=== PATIENT | female | born 1965 | race Caucasian/White ===

== ENCOUNTER 2019-12-22 11:25 | Outpatient (CLI) | payer BC, SELFPAY ==
--- NOTE | ~2019-12-22 | MMUS_ITS ---
EXAMINATION: MM diagnostic [facility] BI w jannie, US breast RT limited HISTORY: Bilateral breast asymmetries on screening mammogram TECHNIQUE: Additional 3-D tomosynthesis images of the breasts were performed and synthetic 2-D images were generated. CAD analysis was submitted and interpreted. High resolution limited right breast ult rasound was performed. COMPARISON: 11/20/2019, 11/21/2018, 11/15/2017, 10/16/2017 FINDINGS: MAMMOGRAPHIC FINDINGS: Right breast: There appears to be a 6 mm low density, round, obscured mass in the middle third of the breast at the 10:00 location 7 cm from the nipple. Left breast: Left breast asymmetries on screening mammogram do not persist with spot compression. ULTRASOUND: There is a 5 mm cyst at the 10:00 location 4 cm from the nipple corresponding to the mammographic fin ding in question. IMPRESSION: 1. No mammographic or sonographic evidence of malignancy. 2. Recommend routine screening mammography in one year. BI-RADS Category 2: Benign finding(s). Reviewed, dictated and finalized at location A. D NUTRITION DIRECTOR IMPRESSION: 1. No mammographic or sonographic evidence of malignancy. 2. Recommend routine screening mammography in one year. BI-RADS Category 2: Benign finding(s).
== END 2019-12-22 11:26 | disposition home or self-care (01) ==
LOC: ANHIMG 11:29
PROVIDERS: PCP Family Medicine; Visit Provider Obstetrics & Gynecology
DX: R92.8 Other abnormal and inconclusive findings on diagnostic imaging of breast (principal)
CPT/HCPCS: 76642; 77062; 77066; G0279

== ENCOUNTER 2020-11-28 07:15 | Outpatient (CLI) | payer BC, SELFPAY ==
--- NOTE | ~2020-11-28 | MM_ITS ---
EXAMINATION: MM screening [facility] BI w jannie HISTORY: Screening TECHNIQUE: Craniocaudal and mediolateral oblique 3-D tomosynthesis images were obtained and synthetic 2-D images were generated. CAD analysis was submitted and interpreted. COMPARISON: Comparison to multiple prior studies sequentially, with oldest reviewed study dated 09/02. BREAST PARENCHYMAL COMPOSITION: There are scattered areas of fibroglandular density. FINDINGS: There are benign bilateral breast calcifications. There is no evidence of suspicious mass, calcification, or architectural distortion to suggest malignancy in either breast. There has been no suspicious interval change. IMPRESSION: 1. No mammographic evidence of malignancy. 2. Recommend routine screening mammography in one year. BI-RADS Category 2: Benign finding(s). Reviewed, dictated and finalized at location A. ION STYLIST
== END 2020-11-28 07:16 | disposition home or self-care (01) ==
PROVIDERS: PCP Family Medicine; Visit Provider Obstetrics & Gynecology
DX: Z12.31 Encounter for screening mammogram for malignant neoplasm of breast (principal)
CPT/HCPCS: 77063; 77067

== ENCOUNTER → 2021-10-10 03:57 | Outpatient (CLI) | payer BC, SELFPAY ==
[2021-10-10 19:26] LABS: SARS-CoV-2 RNA PCR Negative
== END ==
PROVIDERS: PCP Family Medicine; Visit Provider Family Medicine
DX: R09.89 Other specified symptoms and signs involving the circulatory and respiratory systems (principal); Z20.822 Contact with and (suspected) exposure to COVID-19
CPT/HCPCS: C9803; U0003; U0005

== ENCOUNTER 2021-12-03 08:20 | Outpatient (CLI) | payer SELFPAY ==
--- NOTE | ~2021-12-03 | MM_ITS ---
EXAMINATION: MM screening [facility] BI w jannie HISTORY: Screening mammogram TECHNIQUE: Craniocaudal and mediolateral oblique 3-D tomosynthesis images were obtained and synthetic 2-D images were generated. CAD analysis was submitted and interpreted. COMPARISON: 11/20/2020, 12/22/2019, 11/20/2019, 11/21/2018 BREAST PARENCHYMAL COMPOSITION: There are scattered areas of fibroglandular density. FINDINGS: A stable cyst is noted in the right breast. There is no evidence of suspicious mass, calcif ication, or architectural distortion to suggest malignancy in either breast. There has been no suspic ious interval change. IMPRESSION: 1. No mammographic evidence of malignancy. 2. Recommend routine screening mammography in one year. BI-RADS Category 2: Benign finding(s). Reviewed, dictated and finalized at location A. HAUL DRIVER
== END 2021-12-03 08:21 | disposition home or self-care (01) ==
PROVIDERS: PCP Family Medicine; Visit Provider Obstetrics & Gynecology
DX: Z12.31 Encounter for screening mammogram for malignant neoplasm of breast (principal)
CPT/HCPCS: 77063; 77067

== ENCOUNTER 2022-04-14 08:07 | Emergency (ER) | payer BC, SELFPAY ==
--- NOTE | 2022-04-14 08:10 | ED.SKABFB ---
HPI - Skin/Abscess/Foreign Bdy General Chief complaint: Skin/Abscess/Foreign Body Stated complaint: rash Time Seen by Provider: 04/14/22 08:12 Source: patient, RN notes reviewed and old records reviewed Mode of arrival: ambulatory Limitations: no limitations History of Present Illness HPI narrative: 56-year-old female presents to the [facility] with complaints of a genital rash for 2 days. Has tried using Goldbond, peroxide, Polysporin, bacitracin, triamcinolone and hydrocortisone to the area. States she tried calling her MOTORCYCLE ENGINE ASSEMBLER who could not get her in because of a fever. Denies any history of herpes outbreak. Describes the area as burning. MD complaint: rash Onset (ago): day(s) (2) Location: genitals (Bilateral labia) Pain Consistency: constant Treatments prior to arrival: OTC topical medication Related Data Home Medications Medication Instructions Recorded Confirmed cyclosporine 0.05 % eye drops in a 1 drop ophthalmic (eye) Q12H 09/22/19 04/14/22 dropperette (Restasis) multivitamin (Multiple Vitamins 1 tablet PO DAILY 09/22/19 04/14/22 tablet) [place] Eye Drops 1 drp ophthalmic (eye) BID 09/25/19 04/14/22 Allergies Allergy/AdvReac Type Severity Reaction Status Date / Time erythromycin base Allergy Mild RASH/HIVES Verified 04/14/22 08:10 azithromycin Allergy Unknown Rash Verified 04/14/22 08:10 levofloxacin Allergy Unknown Muscle pain Verified 04/14/22 08:10 Review of Systems Review of Systems: All systems reviewed & are unremarkable except as noted in HPI and below Constitutional: Constitutional: Reports no additional constitutional complaints, Denies chills and Denies fever(s) Eyes: Eyes: Reports no additional eye complaints ENT: Reports system reviewed and no additional complaints, except as documented Cardiovascular: Cardiovascular: Reports no additional cardiovascular complaints Respiratory: Respiratory: Reports no additional respiratory complaints Gastrointestinal: Gastrointestinal: Reports no additional gastrointestinal complaints Genitourinary: Genitourinary: Reports as per HPI, Reports genital lesions, Reports pelvic pain and Denies urinary incontinence Musculoskeletal: Musculoskeletal: Reports no additional musculoskeletal complaints Integumentary/Breasts: Skin/Breast: Reports system reviewed and no additional complaints, except as docu Neurologic: Reports system reviewed and no additional complaints, except as documented Psychiatric: Psychiatric: Reports no additional psychiatric complaints Allergic/Immunologic: Allergic/Immunologic: Reports no additional allergic/immunologic complaints PMFSH Past Medical History Medical History Adult BMI 32.0-32.9 kg/sq m Anxiety Asthma Bipolar disorder with depression Bipolar disorder, curr episode manic w/o psychotic features, moderate Bronchitis Chronic cholecystitis CMC DJD(carpometacarpal degenerative joint disease), localized primary Concussion with loss of consciousness of unspecified duration, subsequent encounter CTS (carpal tunnel syndrome) De Quervain's tenosynovitis Depression Depression DJD of left shoulder Encounter for surgical aftercare following surgery on the digestive system Fatigue Head concussion High cholesterol History of blood clots History of kidney stones History of postoperative complication of surgical procedure Spinal Headache after Hyperlipidemia Mild asthma Osteoarthritis of carpometacarpal (CMC) joint of left thumb Posterior rhinorrhea Skin tag Sleep disorder Stress and adjustment reaction Trochanteric bursitis of left hip URI (upper respiratory infection) Vitamin B12 deficiency White coat syndrome without diagnosis of hypertension Surgical History Surgical History H/O: hysterectomy History of 1995 History of cholecystectomy History of colonoscopy History of wisdom tooth ex
[2022-04-14 08:12] VITALS: BP 146/93; PULSE 76; RESP 16; TEMP 36; O2SAT 97
== END 2022-04-14 08:41 | disposition home or self-care (01) ==
PROVIDERS: Emergency Provider Nurse Practitioner; PCP Family Medicine
DX: A60.00 Herpesviral infection of urogenital system, unspecified (principal); E78.00 Pure hypercholesterolemia, unspecified; E78.5 Hyperlipidemia, unspecified; J45.909 Unspecified asthma, uncomplicated
CPT/HCPCS: 87070; 87140; 87255; 87491; 87591; 87661; 99213; G0463

== ENCOUNTER 2022-12-29 08:17 | Outpatient (CLI) | payer BC, SELFPAY ==
--- NOTE | ~2022-12-29 | MM_ITS ---
EXAMINATION: MM screening [facility] BI w jannie HISTORY: Screening mammogram TECHNIQUE: Craniocaudal and mediolateral oblique 3-D tomosynthesis images were obtained and synthetic 2-D images were generated. CAD analysis was submitted and interpreted. COMPARISON: December 03, 2021, November 28, 2020 bilateral screening mammogram examinations December 22, 2019 diagnostic bilateral mammogram and limited right breast ultrasound 11/20/2019 bilateral screening mammogram BREAST PARENCHYMAL COMPOSITION: There are scattered areas of fibroglandular density. FINDINGS: Scattered bilateral breast calcifications. No suspicious reproducible mass, architectural d istortion, malignant calcification, skin thickening or retraction of either breast is detected. There has been no suspicious interval change. IMPRESSION: 1. No mammographic evidence of malignancy. 2. Recommend routine screening mammography in one year. BI-RADS Category 2: Benign finding(s). Reviewed, dictated and finalized at location A. OME CENTER AGENT
== END 2022-12-29 08:18 | disposition home or self-care (01) ==
PROVIDERS: PCP Family Medicine; Visit Provider Obstetrics & Gynecology
DX: Z12.31 Encounter for screening mammogram for malignant neoplasm of breast (principal)
CPT/HCPCS: 77063; 77067

== ENCOUNTER 2024-02-05 13:07 | Emergency (ER) | payer BC, SELFPAY ==
--- NOTE | ~2024-02-05 | CT_ITS ---
EXAMINATION: CT abdomen pelvis wo con DATE: 02/05/2024 14:09 INDICATION: flank pain TECHNIQUE: Computed tomography (CT) of the abdomen and pelvis was performed without intravenous contr ast. Automated exposure control and iterative reconstruction technique were employed. The dose-length product was 1040.03 mGy-cm. COMPARISON: 08/29/2019. FINDINGS: Lower thorax: 1.8 cm focal area of groundglass opacity in the right lower lobe. Liver: Normal. Biliary/Gallbladder: Gallbladder is absent. No bile duct dilation. Pancreas: No mass or duct dilation. Spleen: Normal. Adrenals:No mass. Kidneys: Moderate right perinephric stranding and hydronephrosis. Punctate bilateral nonobstructing u pper pole calcifications. No suspicious renal masses. GI tract: No small or large bowel dilation. Normal appendix. Mesentery/Peritoneum: No ascites, mass, or free air. Retroperitoneum: No mass. Pelvis: 5 mm calcification in the distal right ureter. Normal urinary bladder. Absent uterus. Soft Tissues: Soft tissues and body wall unremarkable. Bones: No acute osseous finding. IMPRESSION: 1.8 cm groundglass opacity in the right lower lobe, presumably infectious or inflammatory. Recommend follow-up low-dose noncontrast CT of the chest in 6-12 months to confirm persistence. 5 mm distal right ureteral stone causing moderate obstructive uropathy. Reviewed, dictated and finalized at location K. IMPRESSION: 1.8 cm groundglass opacity in the right lower lobe, presumably infectious or in flammatory. Recommend follow-up low-dose noncontrast CT of the chest in 6-12 mo nths to confirm persistence. 5 mm distal right ureteral stone causing moderate obstructive uropathy.
[2024-02-05 13:13] VITALS: BP 168/90; PULSE 87; RESP 16; TEMP 36.4; O2SAT 98
--- NOTE | 2024-02-05 13:32 | ED.GENADULT ---
HPI - General Adult General Chief complaint: Urogenital-Female Stated complaint: right flank pain Time Seen by Provider: 02/05/24 13:19 History of Present Illness HPI narrative: Patient is a 58-year-old female who presents ER with right-sided flank pain. Sudden onset this morning. She reports she did have a massage and did some yd work over the last couple of days. Pain is sharp and comes in waves. Associated with nausea but no vomiting. Patient also reports this began after she had worked through some constipation and started having bowel movements. No fevers or chills or sweats. No alleviating factors. Related Data Home Medications Medication Instructions Recorded Confirmed multivitamin (Multiple Vitamins 1 tablet PO DAILY 09/22/19 12/10/23 tablet) [place] Eye Drops 1 drp ophthalmic (eye) BID 09/25/19 12/10/23 levocetirizine 5 mg tablet (Xyzal) 5 mg PO DAILY 07/16/22 12/10/23 lifitegrast 5 % eye drops in a 1 drp EACH EYE BID 07/16/22 12/10/23 dropperette (Xiidra) Macular Shield AREDS mutlivitamin BYMOUTH BID 08/17/22 12/10/23 Allergies Allergy/AdvReac Type Severity Reaction Status Date / Time erythromycin base Allergy Mild RASH/HIVES Verified 12/10/23 14:24 azithromycin Allergy Unknown Rash Verified 12/10/23 13:45 levofloxacin Allergy Unknown Muscle pain Verified 12/10/23 13:45 trazodone AdvReac Intermediate Depression Verified 12/10/23 14:24 Review of Systems Review of Systems: All systems reviewed & are unremarkable except as noted in HPI and below Constitutional: Constitutional: Reports no additional constitutional complaints ENT: Reports system reviewed and no additional complaints, except as documented Cardiovascular: Cardiovascular: Reports no additional cardiovascular complaints Respiratory: Respiratory: Reports no additional respiratory complaints Gastrointestinal: Gastrointestinal: Reports abdominal pain, Denies constipation, Reports nausea and Denies vomiting Genitourinary: Genitourinary: Reports nocturia, Denies dysuria and Reports flank pain PMFSH Past Medical History Medical History Adult BMI 32.0-32.9 kg/sq m Anxiety Arthritis Asthma Bipolar disorder with depression Bipolar disorder, curr episode manic w/o psychotic features, moderate Bronchitis Chronic cholecystitis Chronic headaches CMC DJD(carpometacarpal degenerative joint disease), localized primary Concussion with loss of consciousness of unspecified duration, subsequent encounter CTS (carpal tunnel syndrome) De Quervain's tenosynovitis Depression Depression DJD of left shoulder Encounter for surgical aftercare following surgery on the digestive system Fatigue Head concussion High cholesterol History of blood clots History of kidney stones History of postoperative complication of surgical procedure Spinal Headache after Hoarseness Hyperlipidemia Hyperthyroidism Kidney stones Mild asthma MAUDE on CPAP Osteoarthritis of carpometacarpal (CMC) joint of left thumb Posterior rhinorrhea Skin tag Sleep apnea Sleep disorder Stress and adjustment reaction Trochanteric bursitis of left hip URI (upper respiratory infection) Vitamin B12 deficiency White coat syndrome without diagnosis of hypertension Surgical History Surgical History H/O: hysterectomy History of 1996 History of cholecystectomy History of colonoscopy History of wisdom tooth extraction Family History Family History Mother Cerebrovascular accident Depression Diabetes mellitus Heart disease Hypertension Other Arthritis Social History Social History Social History: Smoking status: Never smoker Second hand tobacco smoke exposure: No Alcohol intake: current Alcohol use details: 2 time
[2024-02-05] MEDS: KETOROLAC 30 MG/ML VIAL (*BKC) IV PUSH (14:00)
[2024-02-05] MEDS: SODIUM CHLORIDE 0.9% IV 1,000 ML 999 ML IV CONT (14:00)
[2024-02-05] MEDS: ONDANSETRON INJ 4 MG/2 ML VIAL IV PUSH (14:00)
[2024-02-05 14:06] LABS: Appearance Urine Clear (Clear); Bacteria Urine None Seen /hpf; Bilirubin Urine Negative (Negative); Blood Urine 2+ (Negative); Color Urine Yellow (Yellow); Glucose Urine UA Negative (Negative); Ketones Urine 2+ mg/dL (Negative); Leukocyte Esterase Ur 1+ LEU/UL (Negative); Nitrate Urine Negative (Negative); Non Pathogenic Casts 0-2; Protein Urine Trace mg/dL (Negative); RBC Urine 21-50 /hpf (0-2); Specific Grav Ur 1.016 (1.001-1.035); Squamous Epithelial Cell Urine Few /hpf (Few); Urobilinogen Urine 0.2 mg/dL (<2.0); pH Urine 8.5 (5.0-9.0)
[2024-02-05 14:17] LABS: Add Urine Microscopic? YES
[2024-02-05 14:48] VITALS: PULSE 70; RESP 17; O2SAT 100
[2024-02-05 14:58] VITALS: BP 146/78; PULSE 67; RESP 15; O2SAT 100
[2024-02-05 15:48] VITALS: BP 146/77; PULSE 69; RESP 14; O2SAT 100
[2024-02-05 15:56] VITALS: BP 146/77; PULSE 69; RESP 17; O2SAT 100
== END 2024-02-05 15:57 | disposition home or self-care (01) ==
PROVIDERS: Emergency Provider Emergency Medicine; PCP Family Medicine
DX: N13.9 Obstructive and reflux uropathy, unspecified (principal); N20.1 Calculus of ureter; J45.909 Unspecified asthma, uncomplicated; E53.8 Deficiency of other specified B group vitamins; E78.00 Pure hypercholesterolemia, unspecified; E05.90 Thyrotoxicosis, unspecified without thyrotoxic crisis or storm; G47.33 Obstructive sleep apnea (adult) (pediatric); M19.90 Unspecified osteoarthritis, unspecified site; M18.12 Unilateral primary osteoarthritis of first carpometacarpal joint, left hand; M19.012 Primary osteoarthritis, left shoulder; F31.9 Bipolar disorder, unspecified; F41.9 Anxiety disorder, unspecified; Z87.442 Personal history of urinary calculi; Z90.710 Acquired absence of both cervix and uterus; Z90.49 Acquired absence of other specified parts of digestive tract; R91.8 Other nonspecific abnormal finding of lung field
CPT/HCPCS: 74176; 81001; 87086; 96361; 96374; 96375; 99284; J1885; J2405; J7030

== ENCOUNTER 2024-02-23 10:29 | Outpatient (CLI) | payer BC, SELFPAY ==
--- NOTE | ~2024-02-23 | MM_ITS ---
EXAMINATION: MM screening [facility] BI w jannie HISTORY: Screening mammogram TECHNIQUE: Craniocaudal and mediolateral oblique 3-D tomosynthesis images were obtained and synthetic 2-D images were generated. CAD analysis was submitted and interpreted. COMPARISON: December 29, 2022, December 03, 2021 bilateral screening mammogram examinations BREAST PARENCHYMAL COMPOSITION: There are scattered areas of fibroglandular density. FINDINGS: Occasional bilateral low-density circumscribed centimeter mass is, mostly with some benign calcifications, likely small partial calcified fibroadenomas. There is no evidence of suspicious mass , calcification, or architectural distortion to suggest malignancy in either breast. There has been n o suspicious interval change. IMPRESSION: 1. Benign findings; no mammographic evidence of malignancy. 2. Recommend routine screening mammography in one year. BI-RADS Category 2: Benign finding(s). Reviewed, dictated and finalized at location A.
== END 2024-02-23 10:30 ==
LOC: MICIMG 10:30
PROVIDERS: PCP Obstetrics & Gynecology; Visit Provider Obstetrics & Gynecology
DX: Z12.31 Encounter for screening mammogram for malignant neoplasm of breast (principal)
CPT/HCPCS: 77063; 77067

== ENCOUNTER 2024-03-20 11:25 | Outpatient (CLI) | payer BC, SELFPAY ==
--- NOTE | ~2024-03-20 | XR_ITS ---
XR abdomen/kub 1V DATE: 03/20/2024 11:54 INDICATION: Right ureteral calculus TECHNIQUE: Supine AP views COMPARISON: None FINDINGS: No ureteral or renal calcifications are radiographically evident; CT examination is more se nsitive for detection of urinary tract calculi. Surgical clips, right upper quadrant, consistent with cholecystectomy. No bowel obstruction, visceromegaly or other significant abnormality is detected. The lung bases appear clear. Normal heart size. IMPRESSION: No urinary tract calculus is evident Reviewed, dictated and finalized at Location A. Reviewed, dictated and finalized at location B.
== END 2024-03-20 11:26 | disposition home or self-care (01) ==
PROVIDERS: PCP Family Medicine; Visit Provider Urology
DX: N20.1 Calculus of ureter (principal)
CPT/HCPCS: 74018

== ENCOUNTER 2024-05-02 12:52 | Outpatient (CLI) | payer BC, SELFPAY ==
--- NOTE | ~2024-05-02 | XR_ITS ---
XR knee RT 3V Ordering provider: Isabelle Bai PA-C History: . M25.561 - Pain in right knee . Comparison: None. FINDINGS: BONES: No acute fracture or dislocation. JOINT SPACES: Mild narrowing of the medial compartment with marginal osteophytes. SOFT TISSUES: Normal. IMPRESSION: No acute osseous abnormality right knee. Mild osteoarthritic changes. Reviewed, dictated and finalized at location A.
== END 2024-05-02 12:53 ==
PROVIDERS: PCP Student in an Organized Health Care Education/Training Program; Visit Provider Student in an Organized Health Care Education/Training Program
DX: M17.11 Unilateral primary osteoarthritis, right knee (principal)
CPT/HCPCS: 73562

== ENCOUNTER 2024-09-19 11:05 | Outpatient (CLI) | payer BC, SELFPAY ==
--- NOTE | ~2024-09-19 | CT_ITS ---
EXAMINATION:CT diagnostic chest wo con DATE: 09/19/2024 11:26 INDICATION: Other nonspecific abnormal finding of lung field. TECHNIQUE: Computed tomography (CT) of the chest was performed without intravenous contrast. Automate d exposure control and iterative reconstruction technique were employed. The dose-length product (DLP ) was 242.22 mGy-cm. COMPARISON: CT abdomen and pelvis 02/05/2024 FINDINGS: The lungs demonstrate mild atelectasis. No pleural effusion. The heart size is normal. No p ericardial effusion. There are changes of cholecystectomy. There is mild thoracic spondylosis. IMPRESSION: 1. Mild atelectasis in the lungs. Reviewed, dictated and finalized at location A. AL SCIENCE INSTRUCTOR
== END 2024-09-19 11:06 | disposition home or self-care (01) ==
PROVIDERS: PCP Family Medicine; Visit Provider Student in an Organized Health Care Education/Training Program
DX: R91.8 Other nonspecific abnormal finding of lung field (principal); J98.11 Atelectasis
CPT/HCPCS: 71250

== ENCOUNTER 2025-04-04 15:30 | Outpatient (CLI) | payer BC, SELFPAY ==
--- NOTE | ~2025-04-04 | MM_ITS ---
EXAMINATION: MM screening [facility] BI w jannie HISTORY: Screening mammogram TECHNIQUE: Craniocaudal and mediolateral oblique 3-D tomosynthesis images were obtained and synthetic 2-D images were generated. CAD analysis was submitted and interpreted. COMPARISON: 02/23/2024 through 11/20/2019 BREAST PARENCHYMAL COMPOSITION: The breasts are almost entirely fatty. FINDINGS: Scattered benign-appearing calcifications are present. There is no evidence of suspicious m ass, calcification, or architectural distortion to suggest malignancy in either breast. There has bee n no suspicious interval change. IMPRESSION: 1. No mammographic evidence of malignancy. 2. Recommend routine screening mammography in one year. BI-RADS Category 2: Benign finding(s). Reviewed, dictated and finalized at location B.
== END 2025-04-04 15:31 | disposition home or self-care (01) ==
LOC: ANHIMG 15:32
PROVIDERS: PCP Family Medicine; Visit Provider Obstetrics & Gynecology
DX: Z12.31 Encounter for screening mammogram for malignant neoplasm of breast (principal)
CPT/HCPCS: 77063; 77067